=== PATIENT | male | born 1960 | race Caucasian/White ===

== ENCOUNTER 2017-04-27 03:06 | Emergency (ER) | payer MEDICARE | END 2017-04-27 03:22 | disposition home or self-care (01) | LOC: D.ER 03:06 | DX: R07.89 Other chest pain (principal); F17.200 Nicotine dependence, unspecified, uncomplicated ==

== ENCOUNTER 2017-05-14 09:09 | Emergency (ER) | payer MEDICARE ==
[2017-05-14 09:33] LABS: BASOPHILS 0.1 % (0-2); EOSINOPHILS 2.1 % (0-7); HEMATOCRIT 40.5 % (42.0-54.0); HEMOGLOBIN 13.3 g/dL (13.5-17.5); IMMATURE GRANULOCYTES 0.4 % (0-5); LYMPHOCYTES 9.5 % (15-50); MCH 28.1 pg (26.0-34.0); MCHC 32.8 g/dL (31.0-37.0); MCV 85.4 fL (80.0-100.0); MEAN PLATELET VOLUME 9.9 fL (7.4-10.4); NEUTROPHILS 81.9 % (40-80); PLATELET COUNT 158 10x3/uL (130-400); RBC 4.74 10x6/uL (4.20-6.10); RDW 14.4 % (11.5-14.5); WBC 16.4 10x3/uL (4.8-10.8)
[2017-05-14 09:47] LABS: ALBUMIN 3.8 g/dL (3.4-5.0); ANION GAP 14.7 mmol/L (8-16); BILIRUBIN - TOTAL 0.38 mg/dL (0.2-1.3); CALCIUM 9.5 mg/dL (8.5-10.1); CREATININE - SERUM 1.2 mg/dL (0.6-1.3); POTASSIUM - SERUM 3.7 mmol/L (3.5-5.1); PROTEIN - SERUM 8.2 g/dL (6.4-8.2)
== END 2017-05-14 11:13 | disposition home or self-care (01) ==
LOC: D.ER 09:09
PROVIDERS: Emergency Medicine
DX: K52.9 Noninfective gastroenteritis and colitis, unspecified (principal); Z94.4 Liver transplant status; R11.0 Nausea; F17.200 Nicotine dependence, unspecified, uncomplicated